=== PATIENT | male | born 1945 | race African-American/Black ===

== ENCOUNTER 2020-06-16 13:23 | Inpatient (IN) | payer OTHER ==
[2020-06-16] MEDS ORDERED: LACTATED RINGERS SOLUTION 1,000 ML/1,000 ML INFUS.BAG IV STA (14:02)
[2020-06-16 15:11] LABS: BASO % 1.2 % (0-2.0); EOS % 0.1 % (0-4.5); HEMATOCRIT 42.1 % (35.4-49); HEMOGLOBIN 13.7 GM/dL (11.7-16.9); LYMPH % 2.8 % (8-40); MCH 29.4 pg (25.7-33.7); MCHC 32.5 g/dl (32.0-35.9); MEAN CELL VOLUME 90.3 fl (80-96); MEAN PLT VOLUME 11.4 fl (7.5-11.1); NEUT % 87.9 % (42.8-82.8); PLATELET COUNT 47 K/MM3 (134-434); RBC 4.66 M/mm3 (4.00-5.60); RDW 15.2 % (11.9-15.9); WHITE BLOOD COUNT 13.8 K/mm3 (4.0-10.0)
[2020-06-16] MEDS ORDERED: VANCOMYCIN 1,000 MG in DEXTROSE 5%-WATER - 250 ML IVPB ONE (15:18)
[2020-06-16] MEDS ORDERED: PIPERACILLIN/TAZOB 4.5 GM 4.5 GM in DEXTROSE 5%-WATER - 100 ML IVPB ONE (15:18)
[2020-06-16] MEDS ORDERED: RAPID SEQUENCE INTUBATION KIT NR ONE (15:21)
[2020-06-16] MEDS ORDERED: KETAMINE HCL 200 MG/20 ML VIAL ONE (15:27)
[2020-06-16 15:28] LABS: POTASSIUM 4.6 mmol/L (3.5-5.1)
[2020-06-16] MEDS ORDERED: ROCURONIUM BROMIDE 100 MG/10 ML VIAL ONE (15:30)
[2020-06-16 15:32] LABS: ALBUMIN 4.1 g/dl (3.4-5.0); CALCIUM 9.2 mg/dL (8.5-10.1)
[2020-06-16 15:35] LABS: CREATININE 0.7 mg/dL (0.55-1.3)
[2020-06-16 15:37] LABS: BILIRUBIN,TOTAL 0.6 mg/dL (0.2-1); LDH 489 U/L (87-246); TOT PROT 8.9 g/dl (6.4-8.2)
[2020-06-16 15:38] LABS: BLOOD UREA NITROGEN 17.8 mg/dL (7-18)
[2020-06-16] MEDS ORDERED: MIDAZOLAM 100 MG/100 ML MG IVPB ONE (15:46)
[2020-06-16 15:49] LABS: ANISOCYTOSIS 0; MACROCYTOSIS 0; PLATELET ESTIMATE DECREASED
[2020-06-16] MEDS ORDERED: NOREPINEPHRINE BITARTRATE 4 MG/4 ML ML IV ONE ×2 (15:56→16:05)
[2020-06-16] MEDS: NOREPINEPHRINE BITARTRATE 8,000 MCG/500 ML BAG IVPB SCH (16:00)
[2020-06-16] MEDS ORDERED: NOREPINEPHRINE BITARTRATE 16,000 MCG in SODIUM CHLORIDE 484 ML IV SCH (16:30)
[2020-06-16] MEDS ORDERED: VANCOMYCIN 1 GRAM (PRE-DOCKED) 1,000 MG/250 ML BAG IVPB ONE (16:32)
[2020-06-16 17:12] LABS: EPI CELLS >36 /uL (0-25.1); HYALINE CASTS 11 /uL (0-3.1); URINE APPEARANCE CLEAR; URINE BACTERIA 19 /uL (0-1359); URINE BILIRUBIN NEGATIVE (NEGATIVE); URINE COLOR DK YELLOW; URINE GLUCOSE (UA) NEGATIVE (NEGATIVE); URINE KETONE TRACE (NEGATIVE); URINE LEUK ESTERASE NEGATIVE (NEGATIVE); URINE NITRITE NEGATIVE (NEGATIVE); URINE PROTEIN 1+ (NEGATIVE); URINE RBC 4 /uL (0-23.9); URINE WBC 11 /uL (0-25.8)
[2020-06-16 17:38] LABS: VENOUS BASE EXCESS 8.2 mmol/L (-2-2); VENOUS O2 SATURATION 93.9 % (70-80)
[2020-06-16 17:43] LABS: VENOUS PCO2 148.4 mmHg (38-52); VENOUS PH 7.088 (7.310-7.410)
[2020-06-16 18:10] LABS: ARTERIAL BLD GAS O2 SATURATION 99.8 mmHg (95-98); ARTERIAL BLOOD GAS BASE EXCESS 8.4 mmol/L (-2-2); ARTERIAL BLOOD GAS PO2 391.1 mmHg (80-100); ARTERIAL BLOOD GAS pH 7.529 (7.350-7.450)
[2020-06-16 18:12] LABS: ALLENS TEST POSITIVE
[2020-06-16 18:13] LABS: VENT MODE A/C; VENT RATE 14
[2020-06-16] MEDS ORDERED: MIDAZOLAM IN 0.9 % SOD.CHLORID 100 MG/100 ML PLAST..BAG IVPB SCH (19:00)
[2020-06-16 19:14] LABS: INR 1.2 (0.83-1.09); PROTHROMBIN TIME (PATIENT) 14.4 SEC (9.7-13.0)
[2020-06-16 19:17] LABS: ACTIVATED PTT 33.4 SECONDS (25.2-36.5)
[2020-06-16 21:17] LABS: ARTERIAL BLD GAS O2 SATURATION 99.7 mmHg (95-98); ARTERIAL BLOOD GAS BASE EXCESS 10.2 mmol/L (-2-2); ARTERIAL BLOOD GAS PO2 268.5 mmHg (80-100)
[2020-06-16 21:18] LABS: VENT MODE AC; VENT RATE 16
[2020-06-16 21:20] LABS: ARTERIAL BLOOD GAS pH 7.623 (7.350-7.450)
[2020-06-16] MEDS: MUPIROCIN 2% TOPICAL OINTMENT FOR DECOLONIZATION NS SCH (22:15)
[2020-06-16] MEDS: CHLORHEXIDINE GLUCONATE 4% CLEANSER FOR DECOLONIZATION TP SCH (22:16)
[2020-06-16] MEDS: SODIUM CHLORIDE 1,000 ML IV SCH (22:36)
[2020-06-16] MEDS ORDERED: PIPERACILLIN/TAZOB 3.375 GM 3.375 GM in DEXTROSE 5%-WATER - 50 ML IVPB SCH (23:00)
[2020-06-17] MEDS: PIPERACILLIN/TAZOB 3.375 GM 3.375 GM in DEXTROSE 5%-WATER - 50 ML IVPB SCH ×3 (03:21→17:06)
[2020-06-17] MEDS ORDERED: MIDAZOLAM 100 MG/100 ML MG IVPB ONE (08:28)
[2020-06-17] MEDS ORDERED: PIPERACILLIN/TAZOBACTAM 3.375 GM VIAL IVPB ONE (09:18)
[2020-06-17] MEDS ORDERED: DEXTROSE 5%-WATER - 50 ML IVPB ONE (09:18)
[2020-06-17] MEDS: PANTOPRAZOLE SODIUM 40 MG VIAL IVPUSH SCH (09:40)
[2020-06-17 09:46] LABS: BASO % 0.2 % (0-2.0); HEMATOCRIT 30.2 % (35.4-49); HEMOGLOBIN 10.2 GM/dL (11.7-16.9); LYMPH % 14.9 % (8-40); MCH 29.8 pg (25.7-33.7); MCHC 33.6 g/dl (32.0-35.9); MEAN CELL VOLUME 88.7 fl (80-96); MEAN PLT VOLUME 11.8 fl (7.5-11.1); MONO % 19.6 % (3.8-10.2); NEUT % 65.3 % (42.8-82.8); PLATELET COUNT 40 K/MM3 (134-434); RDW 14.8 % (11.9-15.9); WHITE BLOOD COUNT 7.9 K/mm3 (4.0-10.0)
[2020-06-17 10:10] LABS: POTASSIUM 3.2 mmol/L (3.5-5.1)
[2020-06-17 10:14] LABS: ALBUMIN 2.8 g/dl (3.4-5.0); BLOOD UREA NITROGEN 19.2 mg/dL (7-18); CALCIUM 8.1 mg/dL (8.5-10.1)
[2020-06-17 10:17] LABS: CREATININE 0.9 mg/dL (0.55-1.3); PHOSPHOROUS 2.6 mg/dL (2.5-4.9)
[2020-06-17 10:21] LABS: TOT PROT 6.6 g/dl (6.4-8.2)
[2020-06-17] MEDS: MUPIROCIN 2% TOPICAL OINTMENT FOR DECOLONIZATION NS SCH ×2 (12:54→22:07)
[2020-06-17] MEDS ORDERED: VANCOMYCIN 1 GM in D5W (PRE-DOCKED) 1,000 MG/250 ML IVPB SCH (16:00)
[2020-06-17] MEDS: NOREPINEPHRINE BITARTRATE 8,000 MCG/500 ML BAG IVPB SCH (16:45)
[2020-06-17] MEDS: SODIUM CHLORIDE 1,000 ML IV SCH (17:45)
[2020-06-17 19:52] LABS: ARTERIAL BLD GAS O2 SATURATION 99.8 mmHg (95-98); ARTERIAL BLOOD GAS BASE EXCESS 5.8 mmol/L (-2-2); ARTERIAL BLOOD GAS PO2 301.4 mmHg (80-100); ARTERIAL BLOOD GAS pH 7.595 (7.350-7.450)
[2020-06-17 19:58] LABS: ALLENS TEST POSITIVE
[2020-06-17 19:59] LABS: VENT MODE A/C; VENT RATE 16
[2020-06-17] MEDS: CHLORHEXIDINE GLUCONATE 4% CLEANSER FOR DECOLONIZATION TP SCH (22:07)
[2020-06-18] MEDS ORDERED: MIDAZOLAM 100 MG/100 ML MG IVPB SCH (00:30)
[2020-06-18] MEDS ORDERED: PIPERACILLIN/TAZOBACTAM 3.375 GM VIAL IVPB ONE ×3 (01:57→17:23)
[2020-06-18] MEDS ORDERED: DEXTROSE 5%-WATER - 50 ML IVPB ONE ×3 (01:57→17:23)
[2020-06-18] MEDS: PIPERACILLIN/TAZOB 3.375 GM 3.375 GM in DEXTROSE 5%-WATER - 50 ML IVPB SCH ×3 (02:10→17:39)
[2020-06-18 03:23] LABS: ARTERIAL BLD GAS O2 SATURATION 99.3 mmHg (95-98); ARTERIAL BLOOD GAS BASE EXCESS 1.9 mmol/L (-2-2); ARTERIAL BLOOD GAS PO2 165.2 mmHg (80-100); ARTERIAL BLOOD GAS pH 7.533 (7.350-7.450)
[2020-06-18 03:24] LABS: ALLENS TEST POSITIVE; VENT MODE A/C
[2020-06-18 03:25] LABS: VENT RATE 14
[2020-06-18] MEDS ORDERED: MIDAZOLAM 100 MG/100 ML MG IVPB ONE (06:03)
[2020-06-18] MEDS: MUPIROCIN 2% TOPICAL OINTMENT FOR DECOLONIZATION NS SCH ×2 (10:14→22:46)
[2020-06-18] MEDS: PANTOPRAZOLE SODIUM 40 MG VIAL IVPUSH SCH (10:14)
[2020-06-18] MEDS ORDERED: DEXMEDETOMIDINE HCL IVPB SCH (10:15)
[2020-06-18] MEDS ORDERED: SODIUM CHLORIDE IVPB SCH (10:15)
[2020-06-18] MEDS: SODIUM CHLORIDE 1,000 ML IV SCH (17:45)
[2020-06-18 20:48] LABS: ARTERIAL BLD GAS O2 SATURATION 98.9 mmHg (95-98); ARTERIAL BLOOD GAS BASE EXCESS -5.5 mmol/L (-2-2); ARTERIAL BLOOD GAS PO2 187.1 mmHg (80-100)
[2020-06-18 20:56] LABS: ALLENS TEST POSITIVE
[2020-06-18 20:57] LABS: ARTERIAL BLOOD GAS pH 7.192 (7.350-7.450)
[2020-06-18] MEDS ORDERED: PYRIDOSTIGMINE BROMIDE PO SCH (22:00)
[2020-06-18] MEDS: CHLORHEXIDINE GLUCONATE 4% CLEANSER FOR DECOLONIZATION TP SCH (22:48)
[2020-06-18 23:37] LABS: ARTERIAL BLD GAS O2 SATURATION 97.3 mmHg (95-98); ARTERIAL BLOOD GAS PO2 160.3 mmHg (80-100)
[2020-06-18] MEDS ORDERED: RAPID SEQUENCE INTUBATION KIT NR ONE (23:40)
[2020-06-18 23:44] LABS: ALLENS TEST POSITIVE
[2020-06-18 23:45] LABS: ARTERIAL BLOOD GAS pH 6.923 (7.350-7.450)
[2020-06-19] MEDS ORDERED: MIDAZOLAM 100 MG/100 ML MG IVPB ONE (00:04)
[2020-06-19] MEDS ORDERED: FENTANYL NS IVPB 500 MCG/100 ML BAG IVPB ONE ×2 (00:04→20:15)
[2020-06-19] MEDS ORDERED: MIDAZOLAM HCL 2 MG/2 ML SINGLE DOSE VIAL ONE (00:19)
[2020-06-19] MEDS ORDERED: LACTATED RINGERS SOLUTION 1000 ML INFUS.BAG IV ONE (00:21)
[2020-06-19] MEDS ORDERED: FENTANYL NS IVPB 500 MCG/100 ML BAG IVPB SCH (00:30)
[2020-06-19] MEDS ORDERED: MIDAZOLAM HCL 2 MG/2 ML SINGLE DOSE VIAL IVPUSH ONE (00:34)
[2020-06-19] MEDS: PYRIDOSTIGMINE BROMIDE 60 MG TABLET PO SCH ×4 (00:51→21:40)
[2020-06-19] MEDS: MIDAZOLAM 100 MG/100 ML MG IVPB SCH ×2 (01:02→20:50)
[2020-06-19 01:16] LABS: ARTERIAL BLD GAS O2 SATURATION 97.3 mmHg (95-98); ARTERIAL BLOOD GAS BASE EXCESS -3.8 mmol/L (-2-2); ARTERIAL BLOOD GAS PO2 119.6 mmHg (80-100)
[2020-06-19 01:27] LABS: VENT MODE A/C
[2020-06-19 01:28] LABS: VENT RATE 12
[2020-06-19 01:29] LABS: ARTERIAL BLOOD GAS pH 7.186 (7.350-7.450)
[2020-06-19] MEDS: PIPERACILLIN/TAZOB 3.375 GM 3.375 GM in DEXTROSE 5%-WATER - 50 ML IVPB SCH ×3 (01:59→17:59)
[2020-06-19 05:40] LABS: ARTERIAL BLD GAS O2 SATURATION 94.5 mmHg (95-98); ARTERIAL BLOOD GAS BASE EXCESS -0.2 mmol/L (-2-2); ARTERIAL BLOOD GAS PO2 78.3 mmHg (80-100)
[2020-06-19 05:41] LABS: ALLENS TEST POSITIVE
[2020-06-19 05:42] LABS: VENT MODE A/C; VENT RATE 20
[2020-06-19 07:49] LABS: HEMATOCRIT 34.1 % (35.4-49); MCH 29.1 pg (25.7-33.7); MCHC 32.1 g/dl (32.0-35.9); MEAN CELL VOLUME 90.7 fl (80-96); MEAN PLT VOLUME 11.3 fl (7.5-11.1); PLATELET COUNT 52 K/MM3 (134-434); RBC 3.76 M/mm3 (4.00-5.60); RDW 14.6 % (11.9-15.9)
[2020-06-19 08:04] LABS: WHITE BLOOD COUNT 39.6 K/mm3 (4.0-10.0)
[2020-06-19 08:09] LABS: POTASSIUM 3.8 mmol/L (3.5-5.1)
[2020-06-19 08:11] LABS: BLOOD UREA NITROGEN 21.2 mg/dL (7-18); CALCIUM 7.6 mg/dL (8.5-10.1)
[2020-06-19 08:12] LABS: MAGNESIUM 2.1 mg/dL (1.8-2.4)
[2020-06-19 08:15] LABS: CREATININE 0.9 mg/dL (0.55-1.3); PHOSPHOROUS 4.6 mg/dL (2.5-4.9)
[2020-06-19] MEDS ORDERED: PIPERACILLIN/TAZOBACTAM 3.375 GM VIAL IVPB ONE (09:36)
[2020-06-19] MEDS ORDERED: DEXTROSE 5%-WATER - 50 ML IVPB ONE (09:36)
[2020-06-19] MEDS: PANTOPRAZOLE SODIUM 40 MG VIAL IVPUSH SCH (09:40)
[2020-06-19] MEDS: MUPIROCIN 2% TOPICAL OINTMENT FOR DECOLONIZATION NS SCH ×2 (09:40→21:31)
[2020-06-19] MEDS: POLYETHYLENE GLYCOL 3350 119 GM BTL PO SCH ×2 (09:40→21:40)
[2020-06-19] MEDS ORDERED: NOREPINEPHRINE BITARTRATE 4 MG/4 ML ML IV ONE ×2 (12:07→21:20)
[2020-06-19] MEDS: NOREPINEPHRINE BITARTRATE 4,000 MCG in DEXTROSE 5%-WATER - 496 ML IV SCH ×2 (12:24→21:36)
[2020-06-19] MEDS ORDERED: fentaNYL CITRATE 250 MCG/5 ML VIAL ONE (14:41)
[2020-06-19] MEDS: FENTANYL IVPB 500 MCG/100 ML BAG IVPB SCH ×2 (15:00→20:35)
[2020-06-19] MEDS: CHLORHEXIDINE GLUCONATE 4% CLEANSER FOR DECOLONIZATION TP SCH (21:31)
[2020-06-20] MEDS ORDERED: VANCOMYCIN/WATER BAGS 1,250 MG/250 ML BAG IVPB SCH
[2020-06-20] MEDS: FENTANYL IVPB 500 MCG/100 ML BAG IVPB SCH ×2 (01:00→15:32)
[2020-06-20] MEDS: PIPERACILLIN/TAZOB 3.375 GM 3.375 GM in DEXTROSE 5%-WATER - 50 ML IVPB SCH ×3 (02:45→17:22)
[2020-06-20] MEDS: PYRIDOSTIGMINE BROMIDE 60 MG TABLET PO SCH ×3 (05:34→22:40)
[2020-06-20] MEDS ORDERED: PIPERACILLIN/TAZOBACTAM 3.375 GM VIAL IVPB ONE ×2 (05:45→09:31)
[2020-06-20] MEDS ORDERED: DEXTROSE 5%-WATER - 50 ML IVPB ONE ×2 (05:45→09:31)
[2020-06-20] MEDS: MIDAZOLAM 100 MG/100 ML MG IVPB SCH (07:30)
[2020-06-20 07:58] LABS: HEMATOCRIT 26.2 % (35.4-49); HEMOGLOBIN 8.5 GM/dL (11.7-16.9); MCH 29.2 pg (25.7-33.7); MCHC 32.6 g/dl (32.0-35.9); MEAN CELL VOLUME 89.7 fl (80-96); MEAN PLT VOLUME 11.6 fl (7.5-11.1); PLATELET COUNT 46 K/MM3 (134-434); RBC 2.92 M/mm3 (4.00-5.60); RDW 14.7 % (11.9-15.9); WHITE BLOOD COUNT 18.5 K/mm3 (4.0-10.0)
[2020-06-20 08:09] LABS: POTASSIUM 3.2 mmol/L (3.5-5.1)
[2020-06-20 08:15] LABS: CALCIUM 7.2 mg/dL (8.5-10.1)
[2020-06-20 08:16] LABS: BLOOD UREA NITROGEN 23.9 mg/dL (7-18); MAGNESIUM 2.1 mg/dL (1.8-2.4)
[2020-06-20 08:19] LABS: CREATININE 1.1 mg/dL (0.55-1.3); PHOSPHOROUS 1.5 mg/dL (2.5-4.9)
[2020-06-20] MEDS ORDERED: POTASSIUM CHLORIDE 20 MEQ PREMIX IVPB 100 ML IVPB SCH (08:45)
[2020-06-20] MEDS ORDERED: KCL 10 MEQ IVPB 10 MEQ/100 ML INFUS.BAG IVPB SCH (08:45)
[2020-06-20] MEDS: KCL 10 MEQ IVPB 10 MEQ/100 ML INFUS.BAG IVPB SCH ×4 (09:13→11:59)
[2020-06-20] MEDS: PANTOPRAZOLE SODIUM 40 MG VIAL IVPUSH SCH (09:36)
[2020-06-20] MEDS: MUPIROCIN 2% TOPICAL OINTMENT FOR DECOLONIZATION NS SCH ×2 (10:12→22:40)
[2020-06-20] MEDS: POLYETHYLENE GLYCOL 3350 119 GM BTL PO SCH ×2 (10:12→22:40)
[2020-06-20] MEDS ORDERED: NAPH,MB-DB/K PH,MBDB POWDER PACKET NGT ONE (11:22)
[2020-06-20] MEDS: NOREPINEPHRINE BITARTRATE 4,000 MCG in DEXTROSE 5%-WATER - 496 ML IV SCH (12:15)
[2020-06-20] MEDS ORDERED: NOREPINEPHRINE BITARTRATE 4 MG/4 ML ML IV ONE (16:04)
[2020-06-20] MEDS: CHLORHEXIDINE GLUCONATE 4% CLEANSER FOR DECOLONIZATION TP SCH (22:40)
[2020-06-21] MEDS: VANCOMYCIN 1 GRAM (PRE-DOCKED) 1,000 MG/250 ML BAG IVPB SCH ×2 (00:51→23:22)
[2020-06-21] MEDS: MIDAZOLAM 100 MG/100 ML MG IVPB SCH ×3 (00:52→10:44)
[2020-06-21] MEDS: PIPERACILLIN/TAZOB 3.375 GM 3.375 GM in DEXTROSE 5%-WATER - 50 ML IVPB SCH ×3 (01:18→19:25)
[2020-06-21] MEDS ORDERED: NOREPINEPHRINE BITARTRATE 4 MG/4 ML ML IV ONE (01:48)
[2020-06-21] MEDS: NOREPINEPHRINE BITARTRATE 4,000 MCG in DEXTROSE 5%-WATER - 496 ML IV SCH ×2 (01:53→19:22)
[2020-06-21] MEDS: PYRIDOSTIGMINE BROMIDE 60 MG TABLET PO SCH ×3 (06:02→21:48)
[2020-06-21 06:22] LABS: ARTERIAL BLD GAS O2 SATURATION 99.6 mmHg (95-98); ARTERIAL BLOOD GAS BASE EXCESS 1.4 mmol/L (-2-2); ARTERIAL BLOOD GAS PO2 265.7 mmHg (80-100); ARTERIAL BLOOD GAS pH 7.424 (7.350-7.450)
[2020-06-21 06:23] LABS: ALLENS TEST POSITIVE
[2020-06-21 06:24] LABS: VENT MODE A/C; VENT RATE 20
[2020-06-21 07:33] LABS: HEMATOCRIT 26.8 % (35.4-49); HEMOGLOBIN 8.9 GM/dL (11.7-16.9); MCH 29.3 pg (25.7-33.7); MCHC 33.1 g/dl (32.0-35.9); MEAN CELL VOLUME 88.6 fl (80-96); MEAN PLT VOLUME 11.2 fl (7.5-11.1); PLATELET COUNT 63 K/MM3 (134-434); RBC 3.03 M/mm3 (4.00-5.60); RDW 14.6 % (11.9-15.9); WHITE BLOOD COUNT 18.5 K/mm3 (4.0-10.0)
[2020-06-21 07:46] LABS: POTASSIUM 3.8 mmol/L (3.5-5.1)
[2020-06-21 07:52] LABS: CALCIUM 7.1 mg/dL (8.5-10.1)
[2020-06-21 07:53] LABS: BLOOD UREA NITROGEN 19.6 mg/dL (7-18)
[2020-06-21 07:54] LABS: MAGNESIUM 2.1 mg/dL (1.8-2.4)
[2020-06-21 07:56] LABS: PHOSPHOROUS 2.1 mg/dL (2.5-4.9)
[2020-06-21] MEDS ORDERED: NAPH,MB-DB/K PH,MBDB POWDER PACKET NGT ONE (10:00)
[2020-06-21] MEDS ORDERED: PIPERACILLIN/TAZOBACTAM 3.375 GM VIAL IVPB ONE (10:09)
[2020-06-21] MEDS ORDERED: DEXTROSE 5%-WATER - 50 ML IVPB ONE (10:10)
[2020-06-21] MEDS: MUPIROCIN 2% TOPICAL OINTMENT FOR DECOLONIZATION NS SCH (10:42)
[2020-06-21] MEDS: POLYETHYLENE GLYCOL 3350 119 GM BTL PO SCH ×2 (10:42→21:41)
[2020-06-21] MEDS: FENTANYL IVPB 500 MCG/100 ML BAG IVPB SCH ×2 (10:43→19:22)
[2020-06-21] MEDS: PANTOPRAZOLE SODIUM 40 MG VIAL IVPUSH SCH (10:44)
[2020-06-21] MEDS: CHLORHEXIDINE GLUCONATE 4% CLEANSER FOR DECOLONIZATION TP SCH (21:41)
[2020-06-21] MEDS: ACETAMINOPHEN 650 MG/20.3 ML ORAL SOLUTION (CUPS) PO PRN (21:48)
[2020-06-22] MEDS: MIDAZOLAM 100 MG/100 ML MG IVPB SCH (01:32)
[2020-06-22] MEDS: PIPERACILLIN/TAZOB 3.375 GM 3.375 GM in DEXTROSE 5%-WATER - 50 ML IVPB SCH ×2 (01:46→09:25)
[2020-06-22] MEDS: PYRIDOSTIGMINE BROMIDE 60 MG TABLET PO SCH ×3 (05:06→21:10)
[2020-06-22 07:52] LABS: HEMATOCRIT 27.6 % (35.4-49); MCH 29.2 pg (25.7-33.7); MCHC 32.6 g/dl (32.0-35.9); MEAN CELL VOLUME 89.6 fl (80-96); MEAN PLT VOLUME 11.5 fl (7.5-11.1); PLATELET COUNT 70 K/MM3 (134-434); RBC 3.08 M/mm3 (4.00-5.60); RDW 14.8 % (11.9-15.9); WHITE BLOOD COUNT 21.9 K/mm3 (4.0-10.0)
[2020-06-22 08:15] LABS: BLOOD UREA NITROGEN 23.3 mg/dL (7-18)
[2020-06-22 08:19] LABS: CREATININE 1.1 mg/dL (0.55-1.3); PHOSPHOROUS 2.2 mg/dL (2.5-4.9)
[2020-06-22] MEDS: ACETAMINOPHEN 650 MG/20.3 ML ORAL SOLUTION (CUPS) PO PRN (08:50)
[2020-06-22] MEDS ORDERED: DEXTROSE 5%-WATER - 50 ML IVPB ONE (08:55)
[2020-06-22] MEDS ORDERED: PIPERACILLIN/TAZOBACTAM 3.375 GM VIAL IVPB ONE (08:55)
[2020-06-22] MEDS: PANTOPRAZOLE SODIUM 40 MG VIAL IVPUSH SCH (09:25)
[2020-06-22] MEDS: POLYETHYLENE GLYCOL 3350 119 GM BTL PO SCH ×2 (09:25→21:10)
[2020-06-22] MEDS ORDERED: SODIUM CHLORIDE IVPB SCH (09:45)
[2020-06-22] MEDS ORDERED: DEXMEDETOMIDINE HCL IVPB SCH (09:45)
[2020-06-22] MEDS ORDERED: BISACODYL 10 MG SUPP.RECT PR ONE (09:45)
[2020-06-22] MEDS: DEXMEDETOMIDINE HCL IVPB SCH (11:34)
[2020-06-22] MEDS: SODIUM CHLORIDE IVPB SCH (11:34)
[2020-06-22] MEDS: NOREPINEPHRINE BITARTRATE 4,000 MCG in DEXTROSE 5%-WATER - 496 ML IV SCH (12:15)
[2020-06-22] MEDS ORDERED: NOREPINEPHRINE BITARTRATE 4 MG/4 ML ML IV ONE ×2 (15:03→22:04)
[2020-06-22] MEDS: FENTANYL IVPB 500 MCG/100 ML BAG IVPB SCH (15:15)
[2020-06-22] MEDS: MEROPENEM 1 GM in DEXTROSE 5%-WATER 100 ML IVPB SCH (17:26)
[2020-06-22] MEDS: CHLORHEXIDINE GLUCONATE 4% CLEANSER FOR DECOLONIZATION TP SCH (21:10)
[2020-06-23] MEDS: MEROPENEM 1 GM in DEXTROSE 5%-WATER 100 ML IVPB SCH ×3 (02:35→17:39)
[2020-06-23] MEDS ORDERED: NOREPINEPHRINE BITARTRATE 4 MG/4 ML ML IV ONE (04:22)
[2020-06-23] MEDS: NOREPINEPHRINE BITARTRATE 4,000 MCG in DEXTROSE 5%-WATER - 496 ML IV SCH ×2 (04:59→13:00)
[2020-06-23] MEDS ORDERED: SODIUM PHOSPHATE/NA BIPHOS 133 ML ENEMA PR ONE (06:00)
[2020-06-23] MEDS: PYRIDOSTIGMINE BROMIDE 60 MG TABLET PO SCH ×3 (06:36→22:01)
[2020-06-23 07:50] LABS: HEMATOCRIT 29.3 % (35.4-49); HEMOGLOBIN 9.5 GM/dL (11.7-16.9); MCHC 32.5 g/dl (32.0-35.9); MEAN CELL VOLUME 89.1 fl (80-96); MEAN PLT VOLUME 11.8 fl (7.5-11.1); PLATELET COUNT 96 K/MM3 (134-434); RBC 3.29 M/mm3 (4.00-5.60); RDW 14.9 % (11.9-15.9); WHITE BLOOD COUNT 22.9 K/mm3 (4.0-10.0)
[2020-06-23 08:05] LABS: POTASSIUM 4.5 mmol/L (3.5-5.1)
[2020-06-23 08:11] LABS: CALCIUM 7.6 mg/dL (8.5-10.1)
[2020-06-23 08:12] LABS: BLOOD UREA NITROGEN 24.3 mg/dL (7-18); MAGNESIUM 2.1 mg/dL (1.8-2.4)
[2020-06-23 08:15] LABS: PHOSPHOROUS 2.6 mg/dL (2.5-4.9)
[2020-06-23] MEDS ORDERED: MAGNESIUM CITRATE 300 ML BOTTLE NGT ONE (08:46)
[2020-06-23] MEDS: POLYETHYLENE GLYCOL 3350 119 GM BTL PO SCH ×2 (09:52→22:01)
[2020-06-23] MEDS: PANTOPRAZOLE SODIUM 40 MG VIAL IVPUSH SCH (09:52)
[2020-06-23] MEDS ORDERED: LACTATED RINGERS SOLUTION 1,000 ML/1,000 ML INFUS.BAG IV STA (11:57)
[2020-06-23 13:45] LABS: HEMATOCRIT 28.5 % (35.4-49); HEMOGLOBIN 9.2 GM/dL (11.7-16.9); MCH 28.9 pg (25.7-33.7); MCHC 32.5 g/dl (32.0-35.9); MEAN CELL VOLUME 89.1 fl (80-96); PLATELET COUNT 99 K/MM3 (134-434); WHITE BLOOD COUNT 17.4 K/mm3 (4.0-10.0)
[2020-06-23] MEDS: FENTANYL IVPB 500 MCG/100 ML BAG IVPB SCH (17:52)
[2020-06-23] MEDS: DEXMEDETOMIDINE HCL IVPB SCH (17:54)
[2020-06-23] MEDS: SODIUM CHLORIDE IVPB SCH (17:54)
[2020-06-23] MEDS: CHLORHEXIDINE GLUCONATE 4% CLEANSER FOR DECOLONIZATION TP SCH (22:02)
[2020-06-24] MEDS ORDERED: MIDAZOLAM HCL 2 MG/2 ML SINGLE DOSE VIAL IVPUSH ONE (01:20)
[2020-06-24] MEDS: MEROPENEM 1 GM in DEXTROSE 5%-WATER 100 ML IVPB SCH ×3 (02:35→17:11)
[2020-06-24] MEDS ORDERED: ACETYLCYSTEINE 20% 200MG/ML 30 ML VIAL *FOR ORAL / INH USE ONLY NEB ONE (02:57)
[2020-06-24] MEDS ORDERED: IPRATROPIUM BR 0.02% 0.5 MG/2.5 ML VIAL.NEB. NEB ONE (03:03)
[2020-06-24] MEDS: PYRIDOSTIGMINE BROMIDE 60 MG TABLET PO SCH ×3 (05:40→23:10)
[2020-06-24 08:25] LABS: HEMATOCRIT 28.6 % (35.4-49); HEMOGLOBIN 9.3 GM/dL (11.7-16.9); MCHC 32.6 g/dl (32.0-35.9); MEAN PLT VOLUME 10.8 fl (7.5-11.1); PLATELET COUNT 136 K/MM3 (134-434); RBC 3.22 M/mm3 (4.00-5.60); RDW 14.9 % (11.9-15.9); WHITE BLOOD COUNT 18.9 K/mm3 (4.0-10.0)
[2020-06-24 08:43] LABS: CALCIUM 7.3 mg/dL (8.5-10.1)
[2020-06-24 08:44] LABS: BLOOD UREA NITROGEN 26.3 mg/dL (7-18); MAGNESIUM 2.2 mg/dL (1.8-2.4)
[2020-06-24 08:49] LABS: PHOSPHOROUS 2.4 mg/dL (2.5-4.9)
[2020-06-24] MEDS: POLYETHYLENE GLYCOL 3350 119 GM BTL PO SCH ×2 (09:23→23:10)
[2020-06-24] MEDS: PANTOPRAZOLE SODIUM 40 MG VIAL IVPUSH SCH (09:23)
[2020-06-24] MEDS ORDERED: MIDAZOLAM HCL 2 MG/2 ML SINGLE DOSE VIAL ONE (11:04)
[2020-06-24] MEDS ORDERED: NOREPINEPHRINE BITARTRATE 4 MG/4 ML ML IV ONE ×2 (11:31→15:26)
[2020-06-24] MEDS ORDERED: MIDAZOLAM HCL 5 MG/1 ML Single Dose Vial IVPUSH ONE (11:33)
[2020-06-24] MEDS: DEXMEDETOMIDINE HCL IVPB SCH (11:49)
[2020-06-24] MEDS: SODIUM CHLORIDE IVPB SCH (11:49)
[2020-06-24] MEDS: NOREPINEPHRINE BITARTRATE 4,000 MCG in DEXTROSE 5%-WATER - 496 ML IV SCH (12:15)
[2020-06-24] MEDS ORDERED: FENTANYL NS IVPB 500 MCG/100 ML BAG IVPB ONE (13:56)
[2020-06-24] MEDS: FENTANYL IVPB 500 MCG/100 ML BAG IVPB SCH (15:30)
[2020-06-24] MEDS ORDERED: fentaNYL CITRATE 250 MCG/5 ML VIAL ONE (18:30)
[2020-06-24] MEDS ORDERED: MIDAZOLAM 100 MG in SODIUM CHLORIDE 100 ML IVPB SCH (20:00)
[2020-06-24] MEDS ORDERED: MIDAZOLAM 100 MG/100 ML MG IVPB SCH (20:00)
[2020-06-24] MEDS: CHLORHEXIDINE GLUCONATE 4% CLEANSER FOR DECOLONIZATION TP SCH (23:10)
[2020-06-25] MEDS: FENTANYL IVPB 500 MCG/100 ML BAG IVPB SCH ×3 (00:26→17:40)
[2020-06-25] MEDS: MEROPENEM 1 GM in DEXTROSE 5%-WATER 100 ML IVPB SCH ×3 (01:30→17:44)
[2020-06-25] MEDS: PYRIDOSTIGMINE BROMIDE 60 MG TABLET PO SCH ×3 (05:52→21:37)
[2020-06-25] MEDS ORDERED: NOREPINEPHRINE BITARTRATE 4 MG/4 ML ML IV ONE (07:52)
[2020-06-25 08:26] LABS: HEMATOCRIT 24.3 % (35.4-49); MCH 29.1 pg (25.7-33.7); MCHC 32.8 g/dl (32.0-35.9); MEAN CELL VOLUME 88.7 fl (80-96); MEAN PLT VOLUME 10.4 fl (7.5-11.1); PLATELET COUNT 150 K/MM3 (134-434); RBC 2.74 M/mm3 (4.00-5.60); RDW 14.8 % (11.9-15.9)
[2020-06-25 08:59] LABS: POTASSIUM 4.9 mmol/L (3.5-5.1)
[2020-06-25 09:01] LABS: CALCIUM 7.3 mg/dL (8.5-10.1)
[2020-06-25 09:02] LABS: BLOOD UREA NITROGEN 21.9 mg/dL (7-18); MAGNESIUM 2.2 mg/dL (1.8-2.4)
[2020-06-25 09:06] LABS: CREATININE 0.8 mg/dL (0.55-1.3); PHOSPHOROUS 2.1 mg/dL (2.5-4.9)
[2020-06-25] MEDS: POLYETHYLENE GLYCOL 3350 119 GM BTL PO SCH ×2 (10:24→21:37)
[2020-06-25] MEDS: DEXMEDETOMIDINE HCL IVPB SCH (10:26)
[2020-06-25] MEDS: PANTOPRAZOLE SODIUM 40 MG VIAL IVPUSH SCH (10:26)
[2020-06-25] MEDS: SODIUM CHLORIDE IVPB SCH (10:26)
[2020-06-25] MEDS ORDERED: SODIUM PHOSPHATE - 15 MM in SODIUM CHLORIDE 250 ML IVPB ONE (11:00)
[2020-06-25] MEDS: NOREPINEPHRINE BITARTRATE 4,000 MCG in DEXTROSE 5%-WATER - 496 ML IV SCH (12:36)
[2020-06-25] MEDS ORDERED: MIDAZOLAM HCL 2 MG/2 ML SINGLE DOSE VIAL ONE (17:31)
[2020-06-25] MEDS ORDERED: MIDAZOLAM HCL 5 MG/1 ML Single Dose Vial IVPUSH PRN ×2 (17:33→17:58)
[2020-06-25] MEDS ORDERED: FENTANYL NS IVPB 500 MCG/100 ML BAG IVPB ONE ×2 (20:11→22:32)
[2020-06-25] MEDS: CHLORHEXIDINE GLUCONATE 4% CLEANSER FOR DECOLONIZATION TP SCH (21:38)
[2020-06-26] MEDS ORDERED: FENTANYL NS IVPB 500 MCG/100 ML BAG IVPB ONE (00:51)
[2020-06-26] MEDS: MEROPENEM 1 GM in DEXTROSE 5%-WATER 100 ML IVPB SCH ×3 (01:41→18:13)
[2020-06-26 03:17] LABS: ALLENS TEST POSITIVE; ARTERIAL BLD GAS O2 SATURATION 97.6 mmHg (95-98); ARTERIAL BLOOD GAS PO2 111.5 mmHg (80-100); ARTERIAL BLOOD GAS pH 7.327 (7.350-7.450)
[2020-06-26] MEDS: PYRIDOSTIGMINE BROMIDE 60 MG TABLET PO SCH ×3 (06:30→21:19)
[2020-06-26 07:02] LABS: BASO % 0.2 % (0-2.0); HEMOGLOBIN 8.7 GM/dL (11.7-16.9); LYMPH % 5.7 % (8-40); MCH 29.5 pg (25.7-33.7); MCHC 33.6 g/dl (32.0-35.9); MEAN CELL VOLUME 87.7 fl (80-96); MEAN PLT VOLUME 9.5 fl (7.5-11.1); MONO % 18.3 % (3.8-10.2); NEUT % 75.8 % (42.8-82.8); PLATELET COUNT 174 K/MM3 (134-434); RBC 2.96 M/mm3 (4.00-5.60); RDW 14.4 % (11.9-15.9)
[2020-06-26 07:27] LABS: POTASSIUM 5.3 mmol/L (3.5-5.1)
[2020-06-26 07:39] LABS: CALCIUM 7.5 mg/dL (8.5-10.1)
[2020-06-26 07:40] LABS: ALBUMIN 1.6 g/dl (3.4-5.0); BLOOD UREA NITROGEN 19.1 mg/dL (7-18); MAGNESIUM 2.2 mg/dL (1.8-2.4)
[2020-06-26 07:42] LABS: PHOSPHOROUS 3.2 mg/dL (2.5-4.9)
[2020-06-26 07:43] LABS: CREATININE 0.7 mg/dL (0.55-1.3)
[2020-06-26 07:44] LABS: BILIRUBIN,TOTAL 0.6 mg/dL (0.2-1); TOT PROT 5.2 g/dl (6.4-8.2)
[2020-06-26] MEDS: DEXMEDETOMIDINE HCL IVPB SCH (08:00)
[2020-06-26] MEDS: SODIUM CHLORIDE IVPB SCH (08:00)
[2020-06-26] MEDS: POLYETHYLENE GLYCOL 3350 119 GM BTL PO SCH ×2 (09:11→21:19)
[2020-06-26] MEDS: PANTOPRAZOLE SODIUM 40 MG VIAL IVPUSH SCH (09:20)
[2020-06-26 10:05] LABS: ARTERIAL BLD GAS O2 SATURATION 99.2 mmHg (95-98); ARTERIAL BLOOD GAS BASE EXCESS 5.3 mmol/L (-2-2); ARTERIAL BLOOD GAS PO2 185.1 mmHg (80-100); ARTERIAL BLOOD GAS pH 7.345 (7.350-7.450)
[2020-06-26 10:08] LABS: ALLENS TEST POSITIVE
[2020-06-26] MEDS: NOREPINEPHRINE BITARTRATE 4,000 MCG in DEXTROSE 5%-WATER - 496 ML IV SCH (15:08)
[2020-06-26 15:18] LABS: ARTERIAL BLD GAS O2 SATURATION 97.8 mmHg (95-98); ARTERIAL BLOOD GAS BASE EXCESS 5.4 mmol/L (-2-2); ARTERIAL BLOOD GAS PO2 100.5 mmHg (80-100); ARTERIAL BLOOD GAS pH 7.443 (7.350-7.450)
[2020-06-26 15:19] LABS: ALLENS TEST POSITIVE
[2020-06-26 15:20] LABS: VENT MODE ST
[2020-06-26] MEDS: FENTANYL IVPB 500 MCG/100 ML BAG IVPB SCH (18:12)
[2020-06-26] MEDS ORDERED: ACETAMINOPHEN 1000 MG/100 ML VIAL (NON FORMULARY) IVPB ONE (20:13)
[2020-06-26] MEDS: CHLORHEXIDINE GLUCONATE 4% CLEANSER FOR DECOLONIZATION TP SCH (21:19)
[2020-06-27] MEDS: MEROPENEM 1 GM in DEXTROSE 5%-WATER 100 ML IVPB SCH ×3 (01:59→17:23)
[2020-06-27] MEDS: PYRIDOSTIGMINE BROMIDE 60 MG TABLET PO SCH ×3 (05:59→21:07)
[2020-06-27 06:58] LABS: BASO % 0.1 % (0-2.0); HEMOGLOBIN 8.8 GM/dL (11.7-16.9); LYMPH % 4.1 % (8-40); MCH 28.8 pg (25.7-33.7); MCHC 32.6 g/dl (32.0-35.9); MEAN CELL VOLUME 88.4 fl (80-96); MEAN PLT VOLUME 9.1 fl (7.5-11.1); MONO % 12.1 % (3.8-10.2); NEUT % 83.7 % (42.8-82.8); PLATELET COUNT 237 K/MM3 (134-434); RBC 3.06 M/mm3 (4.00-5.60); RDW 14.5 % (11.9-15.9); WHITE BLOOD COUNT 18.9 K/mm3 (4.0-10.0)
[2020-06-27 07:14] LABS: POTASSIUM 5.5 mmol/L (3.5-5.1)
[2020-06-27 07:16] LABS: CALCIUM 7.9 mg/dL (8.5-10.1)
[2020-06-27 07:17] LABS: ALBUMIN 1.7 g/dl (3.4-5.0); BLOOD UREA NITROGEN 18.2 mg/dL (7-18); MAGNESIUM 2.1 mg/dL (1.8-2.4)
[2020-06-27 07:20] LABS: CREATININE 0.7 mg/dL (0.55-1.3); PHOSPHOROUS 3.9 mg/dL (2.5-4.9)
[2020-06-27 07:21] LABS: BILIRUBIN,TOTAL 0.5 mg/dL (0.2-1); TOT PROT 5.6 g/dl (6.4-8.2)
[2020-06-27] MEDS ORDERED: DEXTROSE 50%-WATER - 25 GM/50 ML VIAL IVPUSH ONE (08:46)
[2020-06-27] MEDS ORDERED: INSULIN REGULAR HUMAN 100 UNITS/ML *VIAL IVPUSH ONE (08:46)
[2020-06-27] MEDS ORDERED: SODIUM BICARBONATE 8.4% 50 MEQ/50 ML VIAL IVPUSH ONE (08:47)
[2020-06-27] MEDS ORDERED: LABETALOL HCL 5 MG/1 ML (100MG/20 ML VIAL) IVPUSH ONE (09:02)
[2020-06-27] MEDS ORDERED: DEXTROSE 50%-WATER - 25 GM/50 ML VIAL ONE (09:31)
[2020-06-27] MEDS: PANTOPRAZOLE SODIUM 40 MG VIAL IVPUSH SCH (10:00)
[2020-06-27] MEDS: POLYETHYLENE GLYCOL 3350 119 GM BTL PO SCH ×2 (10:19→21:07)
[2020-06-27] MEDS ORDERED: MIDAZOLAM HCL 2 MG/2 ML SINGLE DOSE VIAL IVPUSH ONE (13:00)
[2020-06-27] MEDS ORDERED: ROCURONIUM BROMIDE 50 MG/5 ML VIAL IV ONE (13:08)
[2020-06-27] MEDS ORDERED: FENTANYL NS IVPB 500 MCG/100 ML BAG IVPB ONE (13:09)
[2020-06-27] MEDS ORDERED: PROPOFOL 1,000,000 MCG/100 ML VIAL ONE (13:09)
[2020-06-27] MEDS ORDERED: ETOMIDATE 40 MG/20 ML VIAL IVPUSH ONE (13:09)
[2020-06-27] MEDS ORDERED: PROPOFOL 1,000,000 MCG/100 ML VIAL IVPB SCH ×2 (13:15→14:00)
[2020-06-27] MEDS: FENTANYL IVPB 500 MCG/100 ML BAG IVPB SCH (13:55)
[2020-06-27 16:30] LABS: ARTERIAL BLD GAS O2 SATURATION 97.5 mmHg (95-98); ARTERIAL BLOOD GAS BASE EXCESS 6.6 mmol/L (-2-2); ARTERIAL BLOOD GAS PO2 93.4 mmHg (80-100); ARTERIAL BLOOD GAS pH 7.468 (7.350-7.450)
[2020-06-27 16:36] LABS: ALLENS TEST POSITIVE
[2020-06-27 16:37] LABS: VENT MODE A/C; VENT RATE 20
[2020-06-27] MEDS: CHLORHEXIDINE GLUCONATE 4% CLEANSER FOR DECOLONIZATION TP SCH (21:07)
[2020-06-27] MEDS ORDERED: MIDAZOLAM 100 MG/100 ML MG IVPB ONE (22:23)
[2020-06-27] MEDS: MIDAZOLAM IN 0.9 % SOD.CHLORID 100 MG/100 ML PLAST..BAG IVPB SCH (22:34)
[2020-06-28] MEDS: MEROPENEM 1 GM in DEXTROSE 5%-WATER 100 ML IVPB SCH ×3 (01:44→18:04)
[2020-06-28] MEDS ORDERED: FENTANYL NS IVPB 500 MCG/100 ML BAG IVPB ONE (02:31)
[2020-06-28] MEDS ORDERED: NOREPINEPHRINE BITARTRATE 4 MG/4 ML ML IV ONE (05:06)
[2020-06-28] MEDS: PYRIDOSTIGMINE BROMIDE 60 MG TABLET PO SCH ×3 (05:18→21:55)
[2020-06-28] MEDS: ACETAMINOPHEN 650 MG/20.3 ML ORAL SOLUTION (CUPS) PO PRN (05:23)
[2020-06-28] MEDS: NOREPINEPHRINE BITARTRATE 8,000 MCG/500 ML BAG IVPB SCH (06:45)
[2020-06-28] MEDS ORDERED: NOREPINEPHRINE BITARTRATE 8,000 MCG/500 ML BAG IVPB SCH (07:00)
[2020-06-28] MEDS ORDERED: NOREPINEPHRINE BITARTRATE 16,000 MCG in SODIUM CHLORIDE 484 ML IV SCH (07:00)
[2020-06-28 07:55] LABS: BASO % 0.2 % (0-2.0); HEMATOCRIT 22.7 % (35.4-49); HEMOGLOBIN 7.3 GM/dL (11.7-16.9); LYMPH % 4.6 % (8-40); MCH 28.7 pg (25.7-33.7); MCHC 32.3 g/dl (32.0-35.9); MEAN CELL VOLUME 88.8 fl (80-96); MEAN PLT VOLUME 9.2 fl (7.5-11.1); NEUT % 83.2 % (42.8-82.8); PLATELET COUNT 234 K/MM3 (134-434); RBC 2.55 M/mm3 (4.00-5.60); RDW 14.2 % (11.9-15.9); WHITE BLOOD COUNT 26.4 K/mm3 (4.0-10.0)
[2020-06-28 08:20] LABS: POTASSIUM 5.2 mmol/L (3.5-5.1)
[2020-06-28 08:29] LABS: ALBUMIN 1.6 g/dl (3.4-5.0); BLOOD UREA NITROGEN 18.8 mg/dL (7-18); CALCIUM 7.7 mg/dL (8.5-10.1)
[2020-06-28 08:30] LABS: MAGNESIUM 2.1 mg/dL (1.8-2.4)
[2020-06-28 08:32] LABS: CREATININE 0.8 mg/dL (0.55-1.3); PHOSPHOROUS 3.7 mg/dL (2.5-4.9)
[2020-06-28 08:34] LABS: TOT PROT 4.9 g/dl (6.4-8.2)
[2020-06-28] MEDS ORDERED: MIDAZOLAM 100 MG/100 ML MG IVPB ONE (08:43)
[2020-06-28] MEDS: MIDAZOLAM IN 0.9 % SOD.CHLORID 100 MG/100 ML PLAST..BAG IVPB SCH (09:03)
[2020-06-28 09:20] LABS: ANISOCYTOSIS 0; MACROCYTOSIS 0; PLATELET ESTIMATE NORMAL
[2020-06-28] MEDS: PANTOPRAZOLE SODIUM 40 MG VIAL IVPUSH SCH (10:09)
[2020-06-28] MEDS: POLYETHYLENE GLYCOL 3350 119 GM BTL PO SCH ×2 (10:09→21:55)
[2020-06-28] MEDS: FENTANYL IVPB 500 MCG/100 ML BAG IVPB SCH (10:10)
[2020-06-28] MEDS: CHLORHEXIDINE GLUCONATE 4% CLEANSER FOR DECOLONIZATION TP SCH (21:55)
[2020-06-29] MEDS: MIDAZOLAM IN 0.9 % SOD.CHLORID 100 MG/100 ML PLAST..BAG IVPB SCH (01:54)
[2020-06-29] MEDS: MEROPENEM 1 GM in DEXTROSE 5%-WATER 100 ML IVPB SCH ×2 (02:27→09:48)
[2020-06-29] MEDS: FENTANYL IVPB 500 MCG/100 ML BAG IVPB SCH ×2 (02:28→13:15)
[2020-06-29] MEDS: PYRIDOSTIGMINE BROMIDE 60 MG TABLET PO SCH ×3 (05:48→21:22)
[2020-06-29 05:53] LABS: ALLENS TEST POSITIVE; ARTERIAL BLD GAS O2 SATURATION 99.6 mmHg (95-98); ARTERIAL BLOOD GAS PO2 256.9 mmHg (80-100); ARTERIAL BLOOD GAS pH 7.453 (7.350-7.450)
[2020-06-29 05:54] LABS: VENT MODE A/C; VENT RATE 16
[2020-06-29] MEDS: NOREPINEPHRINE BITARTRATE 8,000 MCG/500 ML BAG IVPB SCH (07:30)
[2020-06-29] MEDS ORDERED: FENTANYL NS IVPB 500 MCG/100 ML BAG IVPB ONE (08:11)
[2020-06-29 09:16] LABS: HEMATOCRIT 26.5 % (35.4-49); HEMOGLOBIN 8.4 GM/dL (11.7-16.9); MCH 28.7 pg (25.7-33.7); MCHC 31.8 g/dl (32.0-35.9); MEAN CELL VOLUME 90.2 fl (80-96); MEAN PLT VOLUME 9.4 fl (7.5-11.1); PLATELET COUNT 261 K/MM3 (134-434); RBC 2.93 M/mm3 (4.00-5.60); RDW 14.7 % (11.9-15.9); WHITE BLOOD COUNT 16.8 K/mm3 (4.0-10.0)
[2020-06-29 09:45] LABS: POTASSIUM 4.3 mmol/L (3.5-5.1)
[2020-06-29] MEDS: PANTOPRAZOLE SODIUM 40 MG VIAL IVPUSH SCH (09:48)
[2020-06-29] MEDS: POLYETHYLENE GLYCOL 3350 119 GM BTL PO SCH ×2 (09:48→21:22)
[2020-06-29 10:11] LABS: CALCIUM 7.3 mg/dL (8.5-10.1)
[2020-06-29 10:12] LABS: ALBUMIN 1.5 g/dl (3.4-5.0); MAGNESIUM 2.1 mg/dL (1.8-2.4)
[2020-06-29 10:15] LABS: CREATININE 0.7 mg/dL (0.55-1.3); PHOSPHOROUS 2.6 mg/dL (2.5-4.9)
[2020-06-29 10:16] LABS: BILIRUBIN,TOTAL 0.3 mg/dL (0.2-1)
[2020-06-29 10:19] LABS: TOT PROT 5.1 g/dl (6.4-8.2)
[2020-06-29] MEDS ORDERED: NOREPINEPHRINE BITARTRATE 4 MG/4 ML ML IV ONE (13:07)
[2020-06-29] MEDS: CHLORHEXIDINE GLUCONATE 4% CLEANSER FOR DECOLONIZATION TP SCH (21:22)
[2020-06-30] MEDS: FENTANYL IVPB 500 MCG/100 ML BAG IVPB SCH ×2 (05:11→10:38)
[2020-06-30] MEDS: PYRIDOSTIGMINE BROMIDE 60 MG TABLET PO SCH ×3 (05:11→22:15)
[2020-06-30] MEDS: MIDAZOLAM IN 0.9 % SOD.CHLORID 100 MG/100 ML PLAST..BAG IVPB SCH ×2 (05:11→16:15)
[2020-06-30] MEDS: PANTOPRAZOLE SODIUM 40 MG VIAL IVPUSH SCH (09:25)
[2020-06-30] MEDS: POLYETHYLENE GLYCOL 3350 119 GM BTL PO SCH ×2 (09:25→22:15)
[2020-06-30 09:31] LABS: POTASSIUM 4.5 mmol/L (3.5-5.1)
[2020-06-30 09:32] LABS: CALCIUM 7.4 mg/dL (8.5-10.1)
[2020-06-30 09:33] LABS: BLOOD UREA NITROGEN 20.8 mg/dL (7-18); MAGNESIUM 2.1 mg/dL (1.8-2.4)
[2020-06-30 09:36] LABS: CREATININE 0.7 mg/dL (0.55-1.3); PHOSPHOROUS 2.8 mg/dL (2.5-4.9)
[2020-06-30 10:03] LABS: HEMATOCRIT 24.4 % (35.4-49); HEMOGLOBIN 7.8 GM/dL (11.7-16.9); MCH 28.8 pg (25.7-33.7); MCHC 32.1 g/dl (32.0-35.9); MEAN CELL VOLUME 89.7 fl (80-96); MEAN PLT VOLUME 9.2 fl (7.5-11.1); PLATELET COUNT 232 K/MM3 (134-434); RBC 2.72 M/mm3 (4.00-5.60); RDW 14.7 % (11.9-15.9); WHITE BLOOD COUNT 15.5 K/mm3 (4.0-10.0)
[2020-06-30] MEDS ORDERED: FUROSEMIDE 40 MG/4 ML INJECTABLE VIAL IVPUSH ONE (10:07)
[2020-06-30] MEDS ORDERED: FENTANYL NS IVPB 500 MCG/100 ML BAG IVPB ONE (20:33)
[2020-06-30] MEDS: CHLORHEXIDINE GLUCONATE 4% CLEANSER FOR DECOLONIZATION TP SCH (22:15)
[2020-06-30] MEDS: NOREPINEPHRINE BITARTRATE 8,000 MCG/500 ML BAG IVPB SCH (22:23)
[2020-07-01] MEDS: PYRIDOSTIGMINE BROMIDE 60 MG TABLET PO SCH ×3 (05:37→21:53)
[2020-07-01] MEDS ORDERED: FENTANYL NS IVPB 500 MCG/100 ML BAG IVPB ONE (08:51)
[2020-07-01] MEDS: MIDAZOLAM IN 0.9 % SOD.CHLORID 100 MG/100 ML PLAST..BAG IVPB SCH ×3 (10:00→16:05)
[2020-07-01] MEDS: POLYETHYLENE GLYCOL 3350 119 GM BTL PO SCH ×2 (10:36→12:57)
[2020-07-01] MEDS: PANTOPRAZOLE SODIUM 40 MG VIAL IVPUSH SCH (10:37)
[2020-07-01] MEDS: NOREPINEPHRINE BITARTRATE 8,000 MCG/500 ML BAG IVPB SCH (10:37)
[2020-07-01] MEDS: CEFTAZIDIME PENTAHYDRATE 1 GM in DEXTROSE 5%-WATER - 50 ML IVPB SCH ×2 (12:55→21:46)
[2020-07-01] MEDS: ACETAMINOPHEN 650 MG/20.3 ML ORAL SOLUTION (CUPS) PO PRN (12:58)
[2020-07-01] MEDS: FENTANYL IVPB 500 MCG/100 ML BAG IVPB SCH ×5 (15:57→21:53)
[2020-07-01 16:27] VITALS: BMI 28.5
[2020-07-01] MEDS ORDERED: QUEtiapine FUMARATE 25 MG TABLET PO ONE (18:43)
[2020-07-01] MEDS ORDERED: RAPID SEQUENCE INTUBATION KIT NR ONE (19:30)
[2020-07-01] MEDS: CHLORHEXIDINE GLUCONATE 4% CLEANSER FOR DECOLONIZATION TP SCH ×2 (21:47→21:52)
[2020-07-02] MEDS: MIDAZOLAM IN 0.9 % SOD.CHLORID 100 MG/100 ML PLAST..BAG IVPB SCH ×2 (06:33→15:09)
[2020-07-02] MEDS: POLYETHYLENE GLYCOL 3350 119 GM BTL PO SCH ×3 (06:34→21:50)
[2020-07-02] MEDS: PYRIDOSTIGMINE BROMIDE 60 MG TABLET PO SCH ×3 (06:35→21:50)
[2020-07-02] MEDS ORDERED: FUROSEMIDE 40 MG/4 ML INJECTABLE VIAL IVPUSH ONE (08:30)
[2020-07-02] MEDS: FENTANYL IVPB 500 MCG/100 ML BAG IVPB SCH (08:44)
[2020-07-02] MEDS: CEFTAZIDIME PENTAHYDRATE 1 GM in DEXTROSE 5%-WATER - 50 ML IVPB SCH ×2 (09:09→21:50)
[2020-07-02] MEDS: PANTOPRAZOLE SODIUM 40 MG VIAL IVPUSH SCH (09:09)
[2020-07-02] MEDS: NOREPINEPHRINE BITARTRATE 8,000 MCG/500 ML BAG IVPB SCH (15:46)
[2020-07-02] MEDS: QUEtiapine FUMARATE 100 MG TABLET (FP) PO SCH (21:50)
[2020-07-02] MEDS: CHLORHEXIDINE GLUCONATE 4% CLEANSER FOR DECOLONIZATION TP SCH (21:50)
[2020-07-03] MEDS: PYRIDOSTIGMINE BROMIDE 60 MG TABLET PO SCH ×3 (05:48→21:22)
[2020-07-03] MEDS: NOREPINEPHRINE BITARTRATE 8,000 MCG/500 ML BAG IVPB SCH (09:15)
[2020-07-03] MEDS: CEFTAZIDIME PENTAHYDRATE 1 GM in DEXTROSE 5%-WATER - 50 ML IVPB SCH ×2 (09:30→21:21)
[2020-07-03] MEDS ORDERED: QUEtiapine FUMARATE 25 MG TABLET ONE (09:36)
[2020-07-03] MEDS: POLYETHYLENE GLYCOL 3350 119 GM BTL PO SCH ×2 (09:40→21:25)
[2020-07-03] MEDS: PANTOPRAZOLE SODIUM 40 MG VIAL IVPUSH SCH (09:40)
[2020-07-03] MEDS: QUEtiapine FUMARATE 50 MG TABLET PO SCH (11:20)
[2020-07-03] MEDS: MIDAZOLAM IN 0.9 % SOD.CHLORID 100 MG/100 ML PLAST..BAG IVPB SCH ×2 (11:30→15:06)
[2020-07-03] MEDS: CHLORHEXIDINE GLUCONATE 4% CLEANSER FOR DECOLONIZATION TP SCH (21:22)
[2020-07-03] MEDS: QUEtiapine FUMARATE 100 MG TABLET (FP) PO SCH (21:25)
[2020-07-03] MEDS ORDERED: RAPID SEQUENCE INTUBATION KIT NR ONE (21:51)
[2020-07-03] MEDS: PROPOFOL 1,000,000 MCG/100 ML VIAL IVPB SCH (22:46)
[2020-07-04] MEDS: PYRIDOSTIGMINE BROMIDE 60 MG TABLET PO SCH (05:11)
[2020-07-04] MEDS: PROPOFOL 1,000,000 MCG/100 ML VIAL IVPB SCH (07:45)
[2020-07-04 08:53] VITALS: TEMP 99.2
[2020-07-04] MEDS: POLYETHYLENE GLYCOL 3350 119 GM BTL PO SCH (09:53)
[2020-07-04] MEDS: PANTOPRAZOLE SODIUM 40 MG VIAL IVPUSH SCH (09:53)
[2020-07-04] MEDS: QUEtiapine FUMARATE 50 MG TABLET PO SCH (09:53)
[2020-07-04] MEDS: CEFTAZIDIME PENTAHYDRATE 1 GM in DEXTROSE 5%-WATER - 50 ML IVPB SCH (09:53)
[2020-07-04 10:00] LABS: HEMATOCRIT 23.8 % (35.4-49); MCH 29.5 pg (25.7-33.7); MCHC 33.6 g/dl (32.0-35.9); MEAN PLT VOLUME 9.7 fl (7.5-11.1); PLATELET COUNT 207 K/MM3 (134-434); RDW 14.6 % (11.9-15.9); WHITE BLOOD COUNT 15.4 K/mm3 (4.0-10.0)
[2020-07-04 10:22] LABS: POTASSIUM 3.6 mmol/L (3.5-5.1)
[2020-07-04 10:27] LABS: CALCIUM 7.4 mg/dL (8.5-10.1)
[2020-07-04 10:28] LABS: BLOOD UREA NITROGEN 17.2 mg/dL (7-18)
[2020-07-04 10:32] LABS: CREATININE 0.6 mg/dL (0.55-1.3)
[2020-07-04 12:47] VITALS: BP 105/55; PULSE 105
== END 2020-07-04 11:45 | disposition short-term general hospital (02) | DRG 207 ==
LOC: JER 13:23 → JERBED 17:33 → JICU-6 20:36
PROVIDERS: ADMIT Internal Medicine Pulmonary Disease; ATTEND Internal Medicine Pulmonary Disease
PROC: 5A1955Z Respiratory Ventilation, Greater than 96 Consecutive Hours (ICD-10-PCS; principal; 2020-06-16)
PROC: 0BH17EZ Insertion of Endotracheal Airway into Trachea, Via Natural or Artificial Opening (ICD-10-PCS; 2020-06-16)
PROC: 0DH67UZ Insertion of Feeding Device into Stomach, Via Natural or Artificial Opening (ICD-10-PCS; 2020-06-16)
PROC: 3E0G76Z Introduction of Nutritional Substance into Upper GI, Via Natural or Artificial Opening (ICD-10-PCS; 2020-06-16)
PROC: 02HV33Z Insertion of Infusion Device into Superior Vena Cava, Percutaneous Approach (ICD-10-PCS; 2020-06-16)
PROC: 02HV33Z Insertion of Infusion Device into Superior Vena Cava, Percutaneous Approach (ICD-10-PCS; 2020-06-24)
PROC: 5A1955Z Respiratory Ventilation, Greater than 96 Consecutive Hours (ICD-10-PCS; 2020-06-27)
PROC: 0BH17EZ Insertion of Endotracheal Airway into Trachea, Via Natural or Artificial Opening (ICD-10-PCS; 2020-06-27)
DX: J96.02 Acute respiratory failure with hypercapnia (principal); J15.6 Pneumonia due to other Gram-negative bacteria; A41.9 Sepsis, unspecified organism; E87.2 Acidosis; J84.9 Interstitial pulmonary disease, unspecified; E87.1 Hypo-osmolality and hyponatremia; R57.9 Shock, unspecified; R64 Cachexia; I10 Essential (primary) hypertension; E78.5 Hyperlipidemia, unspecified; I45.10 Unspecified right bundle-branch block; D69.6 Thrombocytopenia, unspecified; R91.1 Solitary pulmonary nodule; R13.12 Dysphagia, oropharyngeal phase; J47.9 Bronchiectasis, uncomplicated; G70.00 Myasthenia gravis without (acute) exacerbation; K59.00 Constipation, unspecified; R47.1 Dysarthria and anarthria; R19.7 Diarrhea, unspecified; Z68.28 Body mass index [BMI] 28.0-28.9, adult
CPT/HCPCS: 31500; 36415; 36600; 70450-TC; 71045-TC-FY; 71275-TC; 80048; 80053; 81003; 82550; 82553; 82728; 82803; 82962; 83519; 83605; 83615; 83735; 84100; 84436; 84439; 84443; 84481; 84484; 85025; 85027; 85379; 85610; 85730; 86140; 86480; 86850; 86900; 86901; 87040; 87070; 87077; 87086; 87186; 87205; 87305; 87449; 87899; 93005; 93010; 94002; 94640; 94660; 95860-TC; 99291; 99292; C9803; J0131; Q9967; U0003